=== PATIENT | female | born 1955 | race Caucasian/White ===

== ENCOUNTER → 2022-05-26 13:04 | Outpatient (BNVA) | payer MEDICARE, BC, SELFPAY | PROVIDERS: Visit Provider Internal Medicine | DX: I10 Essential (primary) hypertension (principal) | CPT/HCPCS: 99202 ==

== ENCOUNTER → 2022-06-30 07:43 | Outpatient (REF) | payer MEDICARE, BC, SELFPAY ==
--- NOTE | 2022-06-30 07:46 | CA_ITS ---
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 Normal LV systolic function with impaired relaxation filling pattern 2. Normal cardiac valvular Doppler 3. Normal RV systolic pressure 4. No pericardial effusion Findings Left Ventricle Normal left ventricular size, thickness, and systolic function. The visually estimated ejection fraction is between 65-70%. Spectral Doppler is indicative of an impaired relaxation filling pattern. E/E prime ratio is between 8 and 15 consistent with indeterminate filling pressures. Peak GLS i 19.3%, within normal limits. Right Ventricle Normal right ventricular cavity size and systolic function. Atria The left atrium is normal in size. Interatrial shunt cannot be excluded. The right atrium is normal in size. Aortic Valve Normal aortic valve structure and function. There is no aortic valve stenosis. There is no aortic valve regurgitation. Mitral Valve Normal mitral valve structure and function. There is trace mitral valve regurgitation. There is no mitral valve stenosis. Pulmonic Valve The pulmonic valve is likely normal. Tricuspid Valve Normal tricuspid valve structure. There is trace tricuspid valve regurgitation. The right ventricular systolic pressure is normal. Normal right atrial pressure. There is no evidence of pulmonary hypertension. Great Vessels All visible segments of the aorta are normal in size. The pulmonary artery was not well visualized. Venous The inferior vena cava is normal in size and collapses greater than 50% with inspiration. Pericardium/Pleural There is no evidence of pericardial effusion. Prior Study Comparison No prior study available for comparison. Measurements 2D Linear Measurements IVSd: 0.84 0.6-0.9/0.6-1.0 cm LVIDd: 4.26 3.9-5.3/4.2-5.9 cm LVIDd Index: 2.51 2.4-3.2/2.2-3.1 cm/m2 LVIDs: 2.28 2.0-3.6 cm LVPWd: 0.67 0.7-1.1 cm LA Diam: 3.40 2.7-3.8/3.0-4.0 cm LAIDs Index: 2.00 1.5-2.3 cm/m2 LV Mass: 119.69 67-162/88-224 g LV Mass Index: 70.41 43-95/49-115 g/m2 LVOT Diam: 2.10 3.0+(-)1.3 cm 2D Systolic Function EF 4C: 72.60 >55% EF 2C: 61.40 >55% EF BiP: 67.50 >55% Mitral Valve MV Pk E: 0.81 MV PK A: 0.90 MV Decel Time: 131.00 E/A: 0.90 E'Lateral: 9.36 E'Medial: 6.96 E/E' Med: 11.60 E/E' Lat: 8.60 PHT: 38.00 MVA PHT: 5.79 Decel [place]: 6.15 Aortic Valve AoV Pk Nnamdi: 1.47 AoV Pk Grad: 9.00 ANAHI: 3.15 LVOT LVOT Pk Nnamdi: 1.34 LVOT Mn Nanmdi: 0.85 LVOT VTI: 0.25 LVOT Pk Grad: 7.00 LVOT Mn Grad: 3.00 LVOT Diam: 2.10 LVOT Area: 3.46 Diastolic Function MV Pk E: 0.81 MV Pk A: 0.90 E/A: 0.90 E'Medial: 6.96 E/E' Med: 11.60 E' Laterial: 9.36 E/E' Lat: 8.60 Right Ventricle TAPSE (mm): 24.80 TVS' Nnamdi: 14.50 Tricuspid Valve TR Pk Nnamdi: 1.82 TR Pk Grad: 13.00 RA Press: 3.00 RVSP: 16.00 Great Vessels Aorta Sinus of Valsalva: 2.90 2.0-3.5 cm Ao Asc: 2.60 2.1-3.4 cm Pulmonary Veins Pulm Vein S/D 1.30 Pulmonary Valve PV Pk Nnamdi: 1.09 Peak PV Grad: 5.00 Updated in Other Vendor System with Status of Final Helder Garcia MD electronically signed on 06/30/2022 9:48:42 AM with status of Final
== END ==
LOC: HO.CARD 07:43
PROVIDERS: Visit Provider Internal Medicine
DX: I10 Essential (primary) hypertension (principal)
CPT/HCPCS: 93306

== ENCOUNTER → 2022-07-14 09:39 | Outpatient (BNVA) | payer MEDICARE, BC, SELFPAY | PROVIDERS: Visit Provider Internal Medicine | DX: I10 Essential (primary) hypertension (principal) | CPT/HCPCS: 99212 ==

== ENCOUNTER 2023-07-05 07:56 | Outpatient (REF) | payer MEDICARE, BC, SELFPAY ==
[2023-07-05 09:51] LABS: Anion Gap 12 (12-20); Blood Urea Nitrogen 14 mg/dL (9-16); Calcium 9.7 mg/dL (8.4-10.2); Carbon Dioxide 26 mmol/L (22-29); Chloride 108 mmol/L (96-108); Estimated Glomerular Filt Rate > 60; Glucose Random 113 mg/dL (60-115); Potassium 4.3 mmol/L (3.3-5.1); Sodium 142 mmol/L (135-145)
== END 2023-07-05 07:57 | disposition home or self-care (01) ==
LOC: HO.LAB 07:56
PROVIDERS: Visit Provider Internal Medicine
DX: I10 Essential (primary) hypertension (principal)
CPT/HCPCS: 36415; 80048; 93005; 99212

== ENCOUNTER 2023-07-05 07:56 | Outpatient (AMB) | payer MEDICARE, BC, SELFPAY ==
--- NOTE | 2023-07-05 08:21 | MHC.OFFVIS ---
Intake Vital Signs 07/05/23 08:22 Height 5 ft 4 in Weight 150 lb 5.684 oz BMI 25.8 BP 158/74 H Blood Pressure Location Lt brachial Position Sitting Pulse 92 Intake Visit Reasons: 1 year follow up Intake Note: 1 year follow up w. EKG Compliance Clerk Required: No Accompanied by: Self / Same As Patient Allergies No Known Allergies Allergy (Verified 07/05/23 08:23) Medication List - Last Reconciled 07/05/23 by Bry Moscoso MD amlodipine 2.5 mg PO DAILY HPI HPI Comments History of Present Illness Details Eloisa returns for follow-up regarding hypertension. To recall, she went to a dentist in the past and had blood pressure checked and it was in the 180s. That led to urgent care visit where it was more than 200 mm systolic. From there, went to [facility] emergency room but due to delay in being seen she left the ER. Then we saw her in consultation and started on amlodipine. She states she is doing fine. Blood pressures are in the 130s to 140s at home. Diastolics are very much in the normal range. Otherwise, she states she feels fine. No cardiac symptoms. She does not still have a primary care physician and has always been this way. PENDING SALE TO [facility] Surgical History (Updated 07/05/23 @ 08:24 by Elva López) H/O removal of cyst Family History Mother Congestive cardiac failure Father Diabetes Prostate cancer Melanoma Blood clots in brain Dementia Social History Alcohol intake: current Alcohol intake frequency: a few times a week Alcohol type: wine Patient Tobacco Use Status: Never used Tobacco Review of Systems Const Denies weakness ENT Denies dizziness Card Denies chest pain, Denies chest pain with activity, Denies syncope, Denies rapid heart rate, Denies pedal edema, Denies edema, Denies leg edema, Denies lightheadedness, Denies palpitations, Denies dyspnea, Denies dyspnea on exertion and Denies orthopnea Resp Denies cough, Denies dyspnea and Denies dyspnea on exertion GI Denies hematochezia and Denies change in stool character Musc Denies abnormal gait, Denies muscle cramps, Denies muscle weakness, Denies numbness, Denies radiating pain into limb and Denies tingling Neuro Denies abnormal gait, Denies dizziness, Denies syncope, Denies numbness, Denies tingling and Denies weakness Endo Denies palpitations Physical Exam Vital Signs: Last Vital Signs Pulse 92 07/05/23 08:22 BP 158/74 H 07/05/23 08:22 BMI result Body Mass Index 25.8 Const General: comfortable and no acute distress Orientation/consciousness: patient oriented x3 HEENT Other: Unremarkable Head: Yes normal to inspection Neck Neck: Yes normal visual inspection Chest Chest palpation & inspection: normal inspection of the chest Resp Auscultation: clear to auscultation bilaterally Cardio Palpation: normal PMI Heart sounds: S1 normal heart sound present, S2 normal heart sound present, no gallops, no murmurs and no rubs GI Palpation (GI): Soft to palpation Back/Spine/Pelvis Other: unremarkable Skin General skin exam: no rashes or lesions noted Neuro General: patient oriented x3 Extrem General: Yes normal to inspection Psych Mental Status: mental status grossly normal Office Procedures EKG Details: EKG with sinus rhythm at 92/Min; no significant ST-T changes and otherwise unremarkable. [place]. [id number], Complete Assessment & Plan Assessment & Plan (1) Essential (primary) hypertension: Code(s): I10 - Essential (primary) hypertension Plan Echocardiogram in the past with LVEF 65-70%, normal peak global longitudinal strain at 19.3%; no significant valvular issues. Blood pressure is elevated today. At home, borderline high. We can increase the amlodipine dose from 2.5 mg to 5 mg daily. We discussed about this today. Otherwise, lifestyle measures. Strongly advised to get a primary care physician. She still reluctant. Obtain some labs pertinent hypertension-BMP. Orders: Orders Basic Metabolic Panel Today I10 - Essential (primary) hypertension Medications: New amlodipine 5 mg PO DAILY 90 tabs 3RF Discontinued amlodipine Discontinued Reason: Doctor's Order 2.5 mg PO DAILY 90 tabs 3RF I10 - Essential (primary) hypertension Coding Level of Care Code Est Pt Level 3 (73194) Diagnoses Essential (primary) hypertension I10 CPT Codes EKG - CPT: 52168-[id number], Complete ([id number])
[2023-07-05 08:22] VITALS: BP 158/74; PULSE 92; BMI 25.8
== END 2023-07-05 08:43 | disposition home or self-care (01) ==
PROVIDERS: Visit Provider Internal Medicine
DX: I10 Essential (primary) hypertension (principal)
CPT/HCPCS: 93010; 99213

== ENCOUNTER 2024-06-28 07:46 | Outpatient (AMB) | payer MEDICARE, BC, SELFPAY ==
[2024-06-28 08:30] VITALS: BP 180/70; PULSE 98; BMI 24.7
--- NOTE | 2024-06-28 08:30 | A.OFFVIS_ITS ---
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 To recall, she went to a dentist in the past and had blood pressure checked and it was in the 180s. That led to urgent care visit where it was more than 200 mm systolic. From there, went to [facility] emergency room but due to delay in being seen she left the ER. Then we saw her in consultation and started on amlodipine. Overall, she states she feels fine. Today's blood pressure is again high and a manual rechecked it. However, patient insists that at home she has only the 120s to 130s and never this high. She states she gets very anxious coming here and actually got up at 04:30 this morning to prepare for this appointment. We have asked her to get a PCP in the past but she still does not have one. Otherwise, she does not have any cardiac symptoms. Fairly active with no limitations. [facility] Surgical History H/O removal of cyst Family History Mother Congestive cardiac failure Father Diabetes Prostate cancer Melanoma Blood clots in brain Dementia Social History Alcohol intake: current Alcohol intake frequency: a few times a week Alcohol type: wine Patient Tobacco Use Status: Never used Tobacco Review of Systems Const Denies chills, Denies fatigue, Denies fever(s), Denies weight gain and Denies weight loss ENT Denies dizziness Card Denies chest pain, Denies leg edema, Denies lightheadedness, Denies palpitations, Denies dyspnea on exertion, Denies orthopnea and Denies other Resp Denies cough and Denies dyspnea on exertion GI Denies hematochezia and Denies change in stool character Musc Denies abnormal gait, Denies muscle weakness, Denies numbness, Denies radiating pain into limb and Denies tingling Neuro Denies abnormal gait, Denies dizziness, Denies numbness and Denies tingling Endo Denies fatigue and Denies palpitations Physical Exam Vital Signs: Last Vital Signs Pulse 98 06/28/24 08:30 BP 180/70 H 06/28/24 08:30 BMI result Body Mass Index 24.7 Const General: comfortable and no acute distress Orientation/consciousness: patient oriented x3 HEENT Other: Unremarkable Head: Yes normal to inspection Neck Neck: Yes normal visual inspection Chest Chest palpation & inspection: normal inspection of the chest Resp Auscultation: clear to auscultation bilaterally Cardio Palpation: normal PMI Heart sounds: S1 normal heart sound present, S2 normal heart sound present, no gallops, no murmurs and no rubs GI Palpation (GI): Soft to palpation Back/Spine/Pelvis Other: unremarkable Skin General skin exam: no rashes or lesions noted Neuro General: patient oriented x3 Extrem General: Yes normal to inspection Psych Mental Status: mental status grossly normal Office Procedures EKG Details: EKG with underlying sinus rhythm at 98/Min; no significant ST-T changes; normal IL and corrected QT. PVC noted. [id number], Complete Assessment & Plan Assessment & Plan (1) Essential (primary) hypertension: Code(s): I10 - Essential (primary) hypertension Category: Medical Plan Echocardiogram in the past with LVEF 65-70%, normal peak global longitudinal strain at 19.3%; no significant valvular issues. Blood pressure in the clinic is elevated but she insists it is because of anxiety as she got up at 04:30 this morning prepare for this appointment. Per patient, home blood pressures only the 120s to 130s. Advised to double check this with blood pressures elsewhere, lack of pharmacy. If there is anything elevated, advised her to contact us immediately. Continue amlodipine. Dietary measures and lifestyle changes. Strongly advised her to get a primary care physician. Coding Level of Care Code Est Pt Level 3 (93572) Diagnoses Essential (primary) hypertension I10 CPT Codes EKG - CPT: 93047-[id number], Complete ([id number])
== END 2024-06-28 08:49 | disposition home or self-care (01) ==
PROVIDERS: Visit Provider Internal Medicine
DX: I10 Essential (primary) hypertension (principal)
CPT/HCPCS: 93010; 99213

== ENCOUNTER → 2024-06-28 07:46 | Outpatient (BNVA) | payer MEDICARE, BC, SELFPAY | PROVIDERS: Visit Provider Internal Medicine | DX: I10 Essential (primary) hypertension (principal) | CPT/HCPCS: 93005; 99212 ==